=== PATIENT | male | born 1990 | race Hispanic/Latino ===

== ENCOUNTER 2021-10-17 07:36 | Emergency (ER) | payer OTHER ==
[~2021-10-17] VITALS: Ht 167.6 cm; Wt 108.4 kg
[~2021-10-17 07:36] MED LIST: ATEN25TA PO; CETI10TA57 PO; ESOM20CA34 PO; FAMO20TA8 PO; FLUT16H EN; HYDR-3421 PO; LORA2TAB2 PO
[2021-10-17 08:15] LABS: BASOPHILS % (AUTO) 0.5 % (0.0-5.0); EOSINOPHILS % (AUTO) 1.1 % (0.0-8.0); LYMPHOCYTES % (AUTO) 29.5 % (21.0-51.0); MEAN CORPUSCULAR HEMOGLOBIN 27.8 pg (27.0-33.0); MEAN CORPUSCULAR HGB CONC 33.5 g/dL (32.0-36.0); MEAN CORPUSCULAR VOLUME 83.2 fL (79-99); MONOCYTES % (AUTO) 5.1 % (3.0-13.0); NEUTROPHILS % (AUTO) 63.6 % (40.0-77.0); PLATELET COUNT (AUTO) 246 K/uL (130-400); RED BLOOD CELL COUNT(AUTO) 5.89 MIL/uL (4.50-6.20); RED CELL DISTRIBUTION WIDTH 12.7 % (11.0-15.5); WHITE BLOOD COUNT (AUTO) 9.4 K/uL (4.8-10.8)
[2021-10-17 08:22] LABS: CREATININE 0.7 mg/dL (0.5-1.5); POTASSIUM 3.9 mmol/L (3.5-5.1)
[2021-10-17 08:26] LABS: BILIRUBIN,TOTAL 0.9 mg/dL (0.2-1.0); TOTAL PROTEIN, SERUM 7.7 g/dL (6.0-8.3)
[2021-10-17] MEDS ORDERED: ACETAMINOPHEN 500 MG TABLET PO ONE (08:30)
[2021-10-17] MEDS ORDERED: ONDANSETRON 4MG INJ IVP ONE (08:30)
[2021-10-17] MEDS ORDERED: HYOSCYAMINE SULFATE 0.125 MG TAB.SUBL SL SCH (08:30)
[2021-10-17] MEDS ORDERED: LABETALOL 20MG SYG IV ONE (08:46)
[2021-10-17] MEDS ORDERED: LABETALOL 20MG VIAL IV ONE (09:00)
[2021-10-17 09:55] VITALS: BP 141/85
== END 2021-10-17 09:55 | disposition home or self-care (01) ==
LOC: EDH 07:36
DX: R07.89 Other chest pain (principal); I10 Essential (primary) hypertension; R53.1 Weakness; F41.9 Anxiety disorder, unspecified; K21.9 Gastro-esophageal reflux disease without esophagitis; Z79.899 Other long term (current) drug therapy; Z88.6 Allergy status to analgesic agent
CPT/HCPCS: 36415; 71045; 80053; 82550; 83735; 84484; 85025; 85378; 93005; 96374; 96375; 99285; J2405